=== PATIENT | female | born 1985 | race African-American/Black ===

== ENCOUNTER 2021-03-13 13:54 | Emergency (ER) | payer SELFPAY ==
[~2021-03-13] VITALS: Ht 172.7 cm; Wt 114.0 kg
[2021-03-13] MEDS ORDERED: ACETAMINOPHEN 325MG TABLET PO ONE (15:30)
[2021-03-13] MEDS ORDERED: MORPHINE SULFATE 4 MG/ML CPJ (NOT FOR IM USE) IV STA (15:43)
[2021-03-13] MEDS ORDERED: ONDANSETRON HCL 4MG/2ML INJ IV STA (15:43)
[2021-03-13] MEDS ORDERED: SODIUM CHLORIDE 0.9% 1,000 ML IV ONE (15:45)
[2021-03-13 15:55] LABS: BASOPHILS % 0.4 % (0.0-2.0); HEMATOCRIT. 36.8 % (36.0-48.0); HEMOGLOBIN. 12.9 g/dL (12.0-16.0); LYMPHOCYTES % 21.2 % (20.0-50.0); MEAN CORPUSCULAR HEMOGLOBIN 28.2 pg (28.0-32.0); MEAN CORPUSCULAR VOLUME 80.7 fL (81.0-99.0); MEAN PLATELET VOLUME 9.1 fl (7.4-10.4); MONOCYTES % 6.8 % (2.0-8.0); NEUTROPHILS % 70.6 % (40.0-76.0); PLATELET 253 x1000/uL (130-400); RED BLOOD CELL COUNT 4.56 mill/uL (4.2-5.4); RED CELL DISTRIBUTION WIDTH 17.4 % (11.6-14.6)
[2021-03-13 16:02] LABS: CHLORIDE 109 mEq/L (98-107)
[2021-03-13 16:14] LABS: B-HCG QUANTITATIVE < 1 mIU/mL (<3)
[2021-03-13] MEDS ORDERED: LORAZEPAM 2MG/ML CPJ IV ONE (17:45)
[2021-03-13] MEDS ORDERED: ALPRAZOLAM 0.5 MG TABLET PO ONE (19:00)
[2021-03-13] MEDS ORDERED: IOHEXOL-300 100 ML BOTTLE ONE ×2 (19:04→23:21)
[2021-03-13] MEDS ORDERED: IBUP-2030 MT (22:36)
[2021-03-13] MEDS ORDERED: TRAM50TA3 MT (22:36)
[2021-03-13 23:00] VITALS: BP 115/70
== END 2021-03-13 23:00 | disposition home or self-care (01) ==
LOC: ER 14:19
DX: S39.81XA Other specified injuries of abdomen, initial encounter (principal); M54.2 Cervicalgia; M25.511 Pain in right shoulder; M54.5 Low back pain; F41.1 Generalized anxiety disorder; F43.0 Acute stress reaction; K76.0 Fatty (change of) liver, not elsewhere classified; K44.9 Diaphragmatic hernia without obstruction or gangrene; V49.59XA Passenger injured in collision with other motor vehicles in traffic accident, initial encounter; Y93.89 Activity, other specified; Y92.488 Other paved roadways as the place of occurrence of the external cause
CPT/HCPCS: 36415; 71045; 72125; 74177; 76705; 76856; 80053; 84702; 85025; 86850; 86900; 86901; 93005; 96361; 96374; 96375; 99285; J2060; J2270; J2405; J7030; Q9967